=== PATIENT | female | born 1960 | race Caucasian/White ===

== ENCOUNTER 2019-10-28 05:28 | Day surgery (SDC) | payer BC ==
[2019-10-28] VITALS (12 sets, daily range): BP systolic 96–116; BP diastolic 42–87
[~2019-10-28] VITALS: Ht 157.5 cm; Wt 71.2 kg
[~2019-10-28 05:28] MED LIST: IBUPROFEN600 MG PO; VICODIN1 TAB PO; [UNRECOGNIZED DRUG - REMARK]
[2019-10-28] MEDS ORDERED: ZOLOFT25 MG ORAL (06:17)
[2019-10-28] MEDS ORDERED: SYNTHROID75 MCG ORAL (06:17)
[2019-10-28] MEDS ORDERED: [UNRECOGNIZED DRUG - OTHER] BOTH EYES (06:17)
[2019-10-28] MEDS ORDERED: FLOMAX0.4 MG ORAL (06:17)
[2019-10-28] MEDS ORDERED: ceFAZolin sod 1 GM in NS 55 ML IVPB ONE (07:00)
[2019-10-28] MEDS ORDERED: fentaNYL 100 mcg/2 mL IV ONE ×2 (07:19→08:08)
[2019-10-28] MEDS ORDERED: Midazolam 2mg/2ml Inj ONE (07:20)
[2019-10-28] MEDS ORDERED: Sterile Water Irrig 1000ml IRRIG ONE (07:30)
[2019-10-28] MEDS ORDERED: NS Irrig 1000ml ONE (07:30)
[2019-10-28] MEDS ORDERED: DiphenhydrAMINE 50mg/ml Inj IVP PRN (07:30)
[2019-10-28] MEDS ORDERED: LR 1000ml ONE (07:30)
[2019-10-28] MEDS ORDERED: ePHEDrine 50mg/ml Inj ONE (07:30)
[2019-10-28] MEDS ORDERED: fentaNYL 100 mcg/2 mL IV PRN (07:30)
[2019-10-28] MEDS ORDERED: Iothalamate Meglumine 60% 30ML INJ ONE (07:32)
--- NOTE | 2019-10-28 07:33 | Anethesia Preoperative Eval ---
Anesthesia Pre-op PMH/ROS General Date of Evaluation: Oct 28, 2019 Time of Evaluation: 07:25 Anesthesiologist: glynn ASA Score: ASA 2 Mallampati Score Class I : Soft palate, uvula, fauces, pillars visible Class II: Soft palate, uvula, fauces visible Class III: Soft palate, base of uvula visible Class IV: Only hard plate visible Mallampati Classification: Class II Surgeon: Rayshawn Diagnosis: Left renal calulus Surgical Procedure: left retorgrade intrarenal surgery Anesthesia History: none Family History: no anesthesia problems Allergies: Coded Allergies: No Known Allergies (Unverified , 08/31/12) Medications: see eMAR Patient NPO?: Yes NPO Date: Oct 28, 2019 NPO Time: 00:01 Past Medical History Cardiovascular: Denies: HTN, CAD, PR, valve dz, arrhythmia, other Pulmonary: Denies: asthma, COPD, TERENCE, other Gastrointestinal/Genitourinary: Denies: GERD, CRI, ESRD, other Neurologic/Psychiatric: Reports: depression/anxiety; Denies: dementia, CVA, TIA, other Endocrine: Reports: hypothyroidism; Denies: DM, steroids, other PSxH Narrative: knee surgeries - denies complication Anesthesia Pre-op Phys. Exam Physician Exam Last Vital Signs Date Time Temp Pulse Resp B/P (MAP) Pulse Ox O2 Delivery O2 Flow Rate FiO2 10/28/19 06:31 Room Air 10/28/19 06:26 97.2 70 20 111/64 98 Constitutional: NAD Neurologic: CN 2-12 intact Cardiovascular: RRR Respiratory: CTA Gastrointestinal: S/NT/ND Airway Exam Mallampati Classification 2 Mallampati Score: Class II MO: full Neck: normal TMD: 2fb ROM: full Teeth: intact Dentures: no upper, no lower Anesthesia Pre-op A/P Studies Pre-op Studies: EKG - SR Risk Assessment & Plan Assessment: denies CP/SOB Plan: General Status Change Before Surgery: No Pre-Antibiotics Drug: ancef Given Within 1 Hr of Incision: Yes Time Given: 07:40 Thais Jimenez CRNA Oct 28, 2019 07:33
[2019-10-28] MEDS ORDERED: NS Irrig 4000ml IRRIG ONE (07:40)
--- NOTE | 2019-10-28 07:53 | Pre-Procedure Note/Attestation ---
Pre-Procedure Note/Attestation Complete Prior to Procedure Planned Procedure: left Procedure Narrative: RIRS laser stent placement RPG left Indications for Procedure Pre-Operative Diagnosis: left ureteral stone Attestation I attest that I discussed the nature of the procedure; its benefits; risks and complications; and alternatives (and the risks and benefits of such alternatives ), prior to the procedure, with the patient (or the patient's legal unit support representative). I attest that, if there was a reasonable possibility of needing a blood transfusion, the patient (or the patient's legal unit support representative) was given the [facility] standardized written summary, pursuant to the [place] Blood Safety Act ([place] Health and Safety Code # 1645, as amended). I attest that I re-evaluated the patient just prior to the surgery and that there has been no change in the patient's H&P, except as documented below: Liban Desai MD Oct 28, 2019 07:53
[2019-10-28] MEDS ORDERED: Propofol 200mg/20ml IV ONE (08:20)
[2019-10-28] MEDS ORDERED: Metoclopramide 10mg/2ml Inj ONE (08:20)
[2019-10-28] MEDS ORDERED: Lidocaine 1% MPF 10mg/ml 5ml ONE (08:20)
[2019-10-28] MEDS ORDERED: Ketorolac 30mg Inj ONE (08:39)
--- NOTE | 2019-10-28 08:44 | Brief Operative Note ---
Immediate Post Operative Note Operative Note Pre-op Diagnosis: left ureteral stone Procedure: left RIRS laser stone removal stent placement Post-op Diagnosis: same Post-op Diagnosis: same as pre-op Surgeon: Juan Desai Anesthesia: general Specimen: yes Complications: none Condition: stable Fluids: 500 Estimated Blood Loss: minimal Implant(s) used?: No Liban Desai MD Oct 28, 2019 08:44
[2019-10-28] MEDS ORDERED: HYDROmorphone 1mg/ml Carpuject SUBQ PRN (08:45)
[2019-10-28] MEDS ORDERED: HYDROcodone/Acetamin 5/325 tab ORAL PRN (08:45)
[2019-10-28] MEDS ORDERED: Tylenol #3 tab (300mg/30mg) ORAL PRN (08:45)
--- NOTE | 2019-10-28 09:03 | Immediate Post-Op Evaluation ---
Immediate Post-Op Evalulation Immediate Post-Op Evalulation Procedure: Left retrograde intrarenal surgery Date of Evaluation: Oct 28, 2019 Time of Evaluation: 08:55 IV Fluids: 1500 Urinary Output: 400 Blood Pressure Systolic: 112 Blood Pressure Diastolic: 57 Pulse Rate: 86 Respiratory Rate: 14 O2 Sat by Pulse Oximetry: 99 Temperature (Fahrenheit): 99.0 Nausea: No Vomiting: No Complications none Patient Status: awake, reacts, patent Hydration Status: adequate Drug: ancef Given Within 1 Hr of Incision: Yes Time Given: 07:35 Thais Jimenez CRNA Oct 28, 2019 09:03
[2019-10-28] MEDS ORDERED: D5 1/2NS 1,000 ML IV SCH (13:00)
--- NOTE | 2019-10-28 14:11 | Diagnostic Imaging Report ---
INDICATION: Pain, intraoperative TECHNIQUE: Intraoperative imaging Fluoroscopy time: 62.8 seconds Total dose: [id number] mGym2 Total number of images: 4 COMPARISON: None FINDINGS: Intraoperative images demonstrate placement of a wire along the expected course of left ureter, placement of a left nephroureteral stent IMPRESSION: Intraoperative imaging, as described
--- NOTE | 2019-10-28 14:13 | 48 Hour Post Anesthesia Eval ---
Post Anesthesia Evaluation Procedure: Left retrograde intrarenal surgery Date of Evaluation: Oct 28, 2019 Time of Evaluation: 14:13 Blood Pressure Systolic: 110 0: 50 Pulse Rate: 70 Respiratory Rate: 14 O2 Sat by Pulse Oximetry: 98 Airway: patent Nausea: No Vomiting: No Hydration Status: adequate Cardiopulmonary Status: stable Mental Status/LOC: patient returned to baseline Follow-up Care/Observations: na Post-Anesthesia Complications: none Follow-up care needed: N/A Thais Jimenez [facility] Oct 28, 2019 14:13
--- NOTE | 2019-10-31 17:45 | Operative Note - Dictated ---
DATE OF OPERATION: 10/28/2019 PREOPERATIVE DIAGNOSIS: Left distal ureteral stone. POSTOPERATIVE DIAGNOSIS: Left distal ureteral stone. OPERATION: 1. Cystoscopy, retrograde intrarenal surgery with laser, stone fragmentation. 2. Retrograde pyelogram. 3. Double-J stent placement. OPERATED BY: Liban Desai M.D. ANESTHESIA: General. FINDINGS: Embedded 2.5 cm stone in the distal left ureter. INDICATIONS FOR SURGERY: The patient had tried for two weeks to pass the stone from the left kidney, . There was no evidence of progression of stone passages and relieving hydronephrosis. Treatment options were explained to her in great length including all potential complications. She signed the consent. DESCRIPTION OF PROCEDURE: She was brought to the operating room, placed in lithotomy position, prepped and draped in standard fashion. Under general anesthesia, cystoscope was introduced into the bladder. Left ureter was found with stone projecting slightly into the left ureter however there was significant inflammatory reaction around the stone. A guidewire was passed into the left kidney. A semi-rigid ureteroscope was introduced. Using 360 micron fiber, the stone was fragmented into small pieces and retrieved for pathologic examination. ureteroscopy was negative for residual stones. No evidence of urinary using 26-Vietnamese double J stent, was placed in the left kidney and procedure was terminated with Montiel catheter. Sponge count, instrument count was correct. The patient was transferred to the recovery stable condition. No evidence of complications. Liban Desai M.D. DR: Karin JOB#: [id number] CC:
== END 2019-10-28 11:45 | disposition home or self-care (01) ==
LOC: SUR 05:28
DX: N20.1 Calculus of ureter (principal); E78.5 Hyperlipidemia, unspecified; E03.9 Hypothyroidism, unspecified; K21.9 Gastro-esophageal reflux disease without esophagitis; Z85.3 Personal history of malignant neoplasm of breast; M17.0 Bilateral primary osteoarthritis of knee; Z90.89 Acquired absence of other organs; Z79.899 Other long term (current) drug therapy; F32.9 Major depressive disorder, single episode, unspecified; F41.9 Anxiety disorder, unspecified
CPT/HCPCS: 52356; 74019; 76000; J0690; J1885; J1940; J2250; J2405; J2704; J2765; J3010; J7120; 94003; 94150